=== PATIENT | male | born 1985 | race Caucasian/White ===

== ENCOUNTER 2016-08-04 07:56 | Emergency (ER) | payer SELFPAY ==
[~2016-08-04] VITALS: Ht 165.1 cm; Wt 59.0 kg
[2016-08-04 07:58] VITALS: BP 132/72; PULSE 78; RESP 20; TEMP 97.8; O2SAT 98
[2016-08-04] MEDS ORDERED: SODIUM CHLOR 0.9% 1000 ML INJ 1,000 ML IV SCH (08:18)
[2016-08-04 08:21] VITALS: BP 127/67; PULSE 80; RESP 15; O2SAT 99
--- NOTE | 2016-08-04 08:26 | PD ---
HPI Chief Complaint: Abdominal Pain Time Seen by Provider: 08:13 Travel History International Travel<30 days: No Contact w/Intl Traveler<30days: No Traveled to known affect area: No History of Present Illness HPI Patient is a 31-year-old male who presents to emergency room with complaints of abdominal pain. Patient reports that he woke up yesterday morning and had epigastric pain, reports that he thought that he was hungry so he ate his breakfast and then went to work. Patient reports that he had been having persistent abdominal pain since yesterday, reports that "I ate a lot of food yesterday which I thought would help with my pain but it didn't help at all." Patient reports that now his pain is in his right upper quadrant, reports that once he finished work yesterday, he came home and vomited. Patient reports that he has not been able to eat or drink anything since last night. Reports that he has not been able to sleep secondary to his right upper quadrant pain. Patient with no fevers or chills, denies any recent travels or trips. PFSH Past Medical History Medical History: Denies Significant Hx Tetanus Vaccination: < 5 Years Influenza Vaccination: Yes Past Surgical History Abdominal Surgery: No Social History Alcohol Use: No Tobacco Use: Yes Substance Use: No Allergies-Medications (Allergen,Severity, Reaction): Coded Allergies: No Known Allergies (Unverified , 08/04/16) Reported Meds & Prescriptions Reported Meds & Active Scripts Active No Active Prescriptions or Reported Medications Review of Systems General / Constitutional: No: Fever Eyes: No: Visual changes HENT: No: Headaches Cardiovascular: No: Chest Pain or Discomfort Respiratory: No: Shortness of Breath Gastrointestinal: Positive: Nausea, Vomiting, Abdominal Pain Genitourinary: No: Dysuria Musculoskeletal: No: Pain Skin: No Rash Neurologic: No: Weakness Psychiatric: No: Depression Endocrine: No: Polydipsia Hematologic/Lymphatic: No: Easy Bruising Physical Exam Narrative GENERAL: Mild distress SKIN: Focused skin assessment warm/dry. HEAD: Atraumatic. Normocephalic. EYES: Pupils equal and round. No scleral icterus. No injection or drainage. ENT: No nasal bleeding or discharge. Mucous membranes pink and moist. NECK: Trachea midline. No JVD. CARDIOVASCULAR: Regular rate and rhythm. No murmur appreciated. RESPIRATORY: No accessory muscle use. Clear to auscultation. Breath sounds equal bilaterally. GASTROINTESTINAL: Abdomen soft, patient with increased tenderness to the right upper quadrant with guarding on exam MUSCULOSKELETAL: No obvious deformities. No clubbing. No cyanosis. No edema. NEUROLOGICAL: Awake and alert. No obvious cranial nerve deficits. Motor grossly within normal limits. Normal speech. PSYCHIATRIC: Appropriate mood and affect; insight and judgment normal. Data Data Last Documented VS Vital Signs Date Time Temp Pulse Resp B/P Pulse Ox O2 Delivery O2 Flow Rate FiO2 08/04/16 08:48 14 08/04/16 08:21 80 127/67 99 Room Air 08/04/16 07:58 97.8 Orders Complete Blood Count With Diff (08/04/16 08:18) Comprehensive Metabolic Panel (08/04/16 08:18) Lipase (08/04/16 08:18) Prothrombin Time / Inr (Pt) (08/04/16 08:18) Act Partial Throm Time (Ptt) (08/04/16 08:18) Urinalysis - C+S If Indicated (08/04/16 08:18) Us Abdomen Gallbladder (08/04/16 ) Iv Access Insert/Monitor (08/04/16 08:18) Ecg Monitoring (08/04/16 08:18) Oximetry (08/04/16 08:18) NPO (08/04/16 08:18) Morphine Inj (Morphine Inj) (08/04/16 08:30) Ondansetron Inj (Zofran Inj) (08/04/16 08:30) Sodium Chlor 0.9% 1000 Ml Inj (Ns 1000 M (08/04/16 08:18) Sodium Chloride 0.9% Flush (Ns Flush) (08/04/16 08:30) Famotidine Inj (Pepcid Inj) (08/04/16 08:30) Sodium Chlor 0.9% 1000 Ml Inj (Ns 1000 M (08/04/16 08:30) Labs Laboratory Tests Test 08/04/16 08:15 White Blood Count 9.1 TH/MM3 Red Blood Count 5.32 MIL/MM3 Hemoglobin 17.6 GM/DL Hematocrit 49.5 % Mean Corpuscular Volume 92.9 FL Mean Corpuscular Hemoglobin 33.1 PG Mean Corpuscular Hemoglobin 35.7 % Concent Red Cell Distribution Width 13.5 % Platelet Count 206 TH/MM3 Mean Platelet Volume 9.8 FL Neutrophils (%) (Auto) 63.1 % Lymphocytes (%) (Auto) 23.4 % Monocytes (%) (Auto) 10.1 % Eosinophils (%) (Auto) 2.8 % Basophils (%) (Auto) 0.6 % Neutrophils # (Auto) 5.8 TH/MM3 Lymphocytes # (Auto) 2.1 TH/MM3 Monocytes # (Auto) 0.9 TH/MM3 Eosinophils # (Auto) 0.3 TH/MM3 Basophils # (Auto) 0.1 TH/MM3 CBC Comment DIFF FINAL Differential Comment Prothrombin Time 10.7 SEC Prothromb Time International 1.0 RATIO Ratio Activated Partial 28.3 SEC Thromboplast Time Urine Color YELLOW Urine Turbidity HAZY Urine pH 7.0 Urine Specific [place] 1.024 Urine Protein TRACE mg/dL Urine Glucose (UA) NEG mg/dL Urine Ketones NEG mg/dL Urine Occult Blood NEG Urine Nitrite NEG Urine Bilirubin NEG Urine Urobilinogen 2.0 MG/DL Urine Leukocyte Esterase NEG Urine RBC LESS THAN 1 /hpf Urine WBC 1 /hpf Urine Squamous Epithelial <1 /hpf Cells Urine Amorphous Sediment FEW Urine Mucus FEW /lpf Microscopic Urinalysis Comment CULT NOT INDICATED Sodium Level 139 MEQ/L Potassium Level 3.9 MEQ/L Chloride Level 106 MEQ/L Carbon Dioxide Level 27.9 MEQ/L Anion Gap 5 MEQ/L Blood Urea Nitrogen 11 MG/DL Creatinine 0.80 MG/DL Estimat Glomerular Filtration 114 ML/MIN Rate Random Glucose 91 MG/DL Calcium Level 8.5 MG/DL Total Bilirubin 0.7 MG/DL Aspartate Amino Transf 13 U/L (AST/SGOT) Alanine Aminotransferase 24 U/L (ALT/SGPT) Alkaline Phosphatase 48 U/L Total Protein 7.1 GM/DL Albumin 3.8 GM/DL Lipase 94 U/L [facility] Medical Decision Making Medical Screen Exam Complete: Yes Emergency Medical Condition: Yes Interpretation(s) Vital Signs Date Time Temp Pulse Resp B/P Pulse Ox O2 Delivery O2 Flow Rate FiO2 08/04/16 08:16 14 08/04/16 07:58 97.8 78 20 132/72 98 Room Air Differential Diagnosis Differential for abdominal pain with nausea and vomiting includes Gastroenteritis, gastric ulcer, gastritis, acute cholecystitis, acute appendicitis Narrative Course 31-year-old male who presents to emergency room with complaints of abdominal pain with nausea and vomiting since yesterday morning. On exam, patient does have significant tenderness to his right upper quadrant, he is uncomfortable appearing. Plan to obtain lab work, right upper quadrant ultrasound was ordered to evaluate for possible acute cholecystitis. IV fluids as well as antiemetics and pain medications will be administered to patient. Plan to monitor patient on cardiac monitoring. Vital Signs Date Time Temp Pulse Resp B/P Pulse Ox O2 Delivery O2 Flow Rate FiO2 08/04/16 08:48 14 08/04/16 08:21 80 15 127/67 99 Room Air 08/04/16 08:16 14 08/04/16 07:58 97.8 78 20 132/72 98 Room Air Laboratory Tests Test 08/04/16 08:15 White Blood Count 9.1 TH/MM3 (4.0-11.0) Red Blood Count 5.32 MIL/MM3 (4.50-5.90) Hemoglobin 17.6 GM/DL (13.0-17.0) Hematocrit 49.5 % (39.0-51.0) Mean Corpuscular Volume 92.9 FL (80.0-100.0) Mean Corpuscular Hemoglobin 33.1 PG (27.0-34.0) Mean Corpuscular Hemoglobin 35.7 % Concent (32.0-36.0) Red Cell Distribution Width 13.5 % (11.6-17.2) Platelet Count 206 TH/MM3 (150-450) Mean Platelet Volume 9.8 FL (7.0-11.0) Neutrophils (%) (Auto) 63.1 % (16.0-70.0) Lymphocytes (%) (Auto) 23.4 % (9.0-44.0) Monocytes (%) (Auto) 10.1 % (0.0-8.0) Eosinophils (%) (Auto) 2.8 % (0.0-4.0) Basophils (%) (Auto) 0.6 % (0.0-2.0) Neutrophils # (Auto) 5.8 TH/MM3 (1.8-7.7) Lymphocytes # (Auto) 2.1 TH/MM3 (1.0-4.8) Monocytes # (Auto) 0.9 TH/MM3 (0-0.9) Eosinophils # (Auto) 0.3 TH/MM3 (0-0.4) Basophils # (Auto) 0.1 TH/MM3 (0-0.2) CBC Comment DIFF FINAL Differential Comment Prothrombin Time 10.7 SEC (9.8-11.6) Prothromb Time International 1.0 RATIO Ratio Activated Partial 28.3 SEC Thromboplast Time (24.3-30.1) Urine Color YELLOW (YELLW/STRAW) Urine Turbidity HAZY (CLEAR) Urine pH 7.0 (5.0-8.5) Urine Specific [place] 1.024 (1.002-1.035) Urine Protein TRACE mg/dL (NEG-TRACE) Urine Glucose (UA) NEG mg/dL (NEG) Urine Ketones NEG mg/dL (NEG) Urine Occult Blood NEG (NEG) Urine Nitrite NEG (NEG) Urine Bilirubin NEG (NEG) Urine Urobilinogen 2.0 MG/DL (LESS THAN 2.0) Urine Leukocyte Esterase NEG (NEG) Urine RBC LESS THAN 1 /hpf (0-3) Urine WBC 1 /hpf (0-5) Urine Squamous Epithelial <1 /hpf (0-5) Cells Urine Amorphous Sediment FEW Urine Mucus FEW /lpf (OCC) Microscopic Urinalysis Comment CULT NOT INDICATED Sodium Level 139 MEQ/L (136-145) Potassium Level 3.9 MEQ/L (3.5-5.1) Chloride Level 106 MEQ/L (98-107) Carbon Dioxide Level 27.9 MEQ/L (21.0-32.0) Anion Gap 5 MEQ/L (5-15) Blood Urea Nitrogen 11 MG/DL (7-18) Creatinine 0.80 MG/DL (0.60-1.30) Estimat Glomerular Filtration 114 ML/MIN Rate (>89) Random Glucose 91 MG/DL (74-106) Calcium Level 8.5 MG/DL (8.5-10.1) Total Bilirubin 0.7 MG/DL (0.2-1.0) Aspartate Amino Transf 13 U/L (15-37) (AST/SGOT) Alanine Aminotransferase 24 U/L (12-78) (ALT/SGPT) Alkaline Phosphatase 48 U/L (45-117) Total Protein 7.1 GM/DL (6.4-8.2) Albumin 3.8 GM/DL (3.4-5.0) Lipase 94 U/L (73-393) Last Impressions Gall Bladder Ultrasound 08/04/16 0000 Signed Impressions: Service Date/Time: Thursday, August 04, 2016 08:30 - CONCLUSION: Cholelithiasis. No gallbladder wall thickening or pericholecystic fluid. Daniel Adler MD Copies of pt's studies were given to him. he will follow up with gen surgery as outpt. Abdomen is soft, nt/nd, no peritoneal signs. Signs and symptoms of when to return to ER was reviewed with patient in detail. Diagnosis Primary Impression: Cholelithiases Qualified Code: K80.20 - Calculus of gallbladder without cholecystitis without obstruction Referrals: Jesus Alberto Pearl MD Patient Instructions: General Instructions, Narcotic given in the ED Additional Instructions: Please call general surgeon for earliest follow-up Return to the emergency with symptoms worsen or progress Return to the emergency room as needed Please bring a copy of your discharge paperwork to doctor's office for follow-up Scripts No Active Prescriptions or Reported Meds Disposition: 01 DISCHARGE HOME Condition: Stable Marlyn Kovacs DO August 04, 2016 08:26
[2016-08-04] MEDS ORDERED: SODIUM CHLORIDE 0.9% FLUSH 10 ML FLUSH IV FLUSH PRN (08:30)
[2016-08-04] MEDS ORDERED: MORPHINE SULFATE 4 MG/ML INJ IV PUSH ONE (08:30)
[2016-08-04] MEDS ORDERED: ONDANSETRON HCL 4 MG/2 ML VIAL IVP ONE (08:30)
[2016-08-04] MEDS ORDERED: SODIUM CHLOR 0.9% 1000 ML INJ 1,000 ML IV ONE (08:30)
[2016-08-04] MEDS ORDERED: FAMOTIDINE 20 MG/2 ML VIAL IV PUSH ONE (08:30)
[2016-08-04 08:43] LABS: AUTOMATED NEUTROPHIL # 5.8 TH/MM3 (1.8-7.7); BASOPHIL # 0.1 TH/MM3 (0-0.2); BASOPHIL % 0.6 % (0.0-2.0); EOSINOPHIL # 0.3 TH/MM3 (0-0.4); EOSINOPHIL % 2.8 % (0.0-4.0); HEMATOCRIT 49.5 % (39.0-51.0); HEMO FLAGS DIFF FINAL; LYMPH % 23.4 % (9.0-44.0); LYMPHOCYTE # 2.1 TH/MM3 (1.0-4.8); MEAN CELL VOLUME 92.9 FL (80.0-100.0); MEAN CORPUSCULAR HEMOGLOBIN 33.1 PG (27.0-34.0); MEAN CORPUSCULAR HGB CONC 35.7 % (32.0-36.0); MONO % 10.1 % (0.0-8.0); NEUT % 63.1 % (16.0-70.0); PLATELET COUNT 206 TH/MM3 (150-450); RED BLOOD COUNT 5.32 MIL/MM3 (4.50-5.90); RED CELL DISTRIBUTION WIDTH 13.5 % (11.6-17.2); WHITE BLOOD COUNT 9.1 TH/MM3 (4.0-11.0)
[2016-08-04 08:48] VITALS: RESP 14
[2016-08-04 08:55] LABS: APTT (PATIENT) 28.3 SEC (24.3-30.1); PROTHROMBIN TIME - PATIENT 10.7 SEC (9.8-11.6)
[2016-08-04 09:00] LABS: BLOOD, URINE NEG (NEG); COMMENT (UR) CULT NOT INDICATED; CULTURE IF INDICATED CULT NOT INDICATED; GLUCOSE,URINE NEG (NEG); KETONE, URINE NEG (NEG); MUCUS URINE FEW /lpf (OCC); NITRITE,URINE NEG (NEG); SQUAMOUS EPITHELIAL CELL URINE <1 /hpf (0-5); URINE COLOR YELLOW (YELLW/STRAW)
--- NOTE | 2016-08-04 09:16 | RADRPT ---
EXAM DATE/TIME: 08/04/2016 08:30 [facility] COMPARISON: No previous studies available for comparison. INDICATIONS : Abdominal pain. MEDICAL HISTORY : Persistent abdominal pain. SURGICAL HISTORY : None. ENCOUNTER: Initial ACUITY: 2 days PAIN SCORE: 8/10 LOCATION: Right upper quadrant MEASUREMENTS: LIVER: 15.2 cm length COMMON DUCT: 3 mm RIGHT KIDNEY: 11.5 x 4.6 x 3.8 cm FINDINGS: LIVER: Normal echotexture without focal lesion or ductal dilatation. COMMON DUCT: No intraluminal mass or stone visualized. GALLBLADDER: Multiple mobile shadowing gallstones identified in the gallbladder. The largest measures 1.8 cm. No e vidence of wall thickening or pericholecystic fluid. No sonographic Cuevas's sign. PANCREAS: The visualized portions are within normal limits. RIGHT KIDNEY: No evidence of hydronephrosis, stone, or mass. CONCLUSION: Cholelithiasis. No gallbladder wall thickening or pericholecystic fluid. Daniel Adler MD on August 04, 2016 at 9:13 Board Certified Radiologist. This report was verified electronically.
[2016-08-04 09:24] LABS: ANION GAP 5 MEQ/L (5-15); BICARBONATE 27.9 MEQ/L (21.0-32.0); BLOOD UREA NITROGEN 11 MG/DL (7-18); CHLORIDE 106 MEQ/L (98-107); POTASSIUM 3.9 MEQ/L (3.5-5.1); SODIUM (NA) 139 MEQ/L (136-145)
[2016-08-04 09:28] LABS: AST (GOT) 13 U/L (15-37); GLOMERULAR FILTRATION RATE 114 ML/MIN (>89)
[2016-08-04 09:36] LABS: ALT (GPT) 24 U/L (12-78); TOTAL BILIRUBIN ADULT 0.7 MG/DL (0.2-1.0)
[2016-08-04 09:43] LABS: ALKALINE PHOSPHATASE 48 U/L (45-117)
[2016-08-04 11:29] VITALS: BP 110/66
[2016-08-04] MEDS ORDERED: oxyCODONE/ACETAMINOPHEN 5 MG/325 MG TAB PO ONE (11:45)
== END 2016-08-04 11:45 | disposition home or self-care (01) ==
LOC: NEPE 07:56
DX: K80.20 Calculus of gallbladder without cholecystitis without obstruction (principal); R11.2 Nausea with vomiting, unspecified; Z72.0 Tobacco use
CPT/HCPCS: 76705; 80053; 81001; 83690; 85025; 85610; 85730; 96361; 96374; 96375; 99285; J2270; J2405; J7030